=== PATIENT | female | born 1980 | race Two or more races ===

== ENCOUNTER 2021-11-24 03:48 | Emergency (ER) | payer SELFPAY ==
[~2021-11-24] VITALS: Ht 167.6 cm; Wt 54.4 kg
[2021-11-24 03:54] VITALS: BP 118/76
--- NOTE | 2021-11-24 04:00 | NUR ---
BIBRA 79 FOR ETOH, PT ALERT AND RESPONSIVE ON TRIAGE. PATIENT PLACED IN BED 12 ON MONITOR.
--- NOTE | 2021-11-24 04:27 | NUR ---
Patient discharged to home in stable condition. Written and verbal after care instructions given. Patient verbalizes understanding of instruction.
== END 2021-11-24 04:27 | disposition home or self-care (01) ==
LOC: ER 03:53
DX: F10.129 Alcohol abuse with intoxication, unspecified (principal); Y90.9 Presence of alcohol in blood, level not specified